=== PATIENT | male | born 1975 | race Caucasian/White ===

== ENCOUNTER 2017-07-11 00:59 | Outpatient (CLI) | payer BC | END 2017-07-11 01:00 | disposition home or self-care (01) | LOC: BICMRI 00:59 | PROVIDERS: ATTEND Family Medicine | DX: M51.17 Intervertebral disc disorders with radiculopathy, lumbosacral region (principal); M47.26 Other spondylosis with radiculopathy, lumbar region; M48.061 Spinal stenosis, lumbar region without neurogenic claudication | CPT/HCPCS: 72148 ==

== ENCOUNTER 2017-08-17 21:39 | Emergency (ER) | payer BC, SELFPAY ==
[2017-08-17] MEDS ORDERED: HYDROcodone/Acetaminophen 10/325 mg Tablet ONE (22:21)
[2017-08-17] MEDS ORDERED: Morphine 4 MG/ML Carpuject ONE ×2 (23:23→23:24)
== END 2017-08-17 23:40 | disposition home or self-care (01) ==
LOC: ERS 21:39
DX: M54.5 Low back pain (principal)
CPT/HCPCS: 96372; J2270

== ENCOUNTER 2017-09-14 14:49 | Outpatient (CLI) | payer BC ==
[2017-09-14 15:14] LABS: Hemoglobin 15.2 g/dL (14.0-18.0); Mean Corpuscular HGB CONC 33.1 g/dL (32.0-36.0); Mean Corpuscular Hemoglobin 28.3 pg (27.0-31.0); Mean Corpuscular Volume 85.3 fl (80.0-94.0); Mean Platelet Volume 8.1 fL (7.4-10.4); Platelet Count 214 thou/uL (130-400); RBC Distribution Width 11.9 % (11.5-14.5); Red Blood Cell (RBC) Count 5.39 mill/uL (4.70-6.10); White Blood Cell (WBC) Count 9.1 thou/uL (4.8-10.8)
[2017-09-14 15:35] LABS: Anion Gap 15 mmol/L (10-20); BUN (Urea Nitrogen) 18 mg/dL (8.9-20.6); Calc. Creatinine Clearance 0 mL/min (70-130); Calcium 9.8 mg/dL (7.8-10.44); Carbon Dioxide 26 mmol/L (22-29); Chloride 104 mmol/L (98-107); Estimated GFR-MDRD 67; Glucose 91 mg/dL (70-105); Potassium 3.8 mmol/L (3.5-5.1); Sodium 141 mmol/L (136-145)
--- NOTE | 2017-09-16 09:16 | EKG ---
Test Reason : Blood Pressure : / mmHG Vent. Rate : 075 BPM Atrial Rate : 075 BPM P-R Int : 146 ms QRS Dur : 090 ms QT Int : 388 ms P-R-T Axes : 056 040 031 degrees QTc Int : 433 ms Normal sinus rhythm with sinus arrhythmia Normal ECG No previous ECGs available Confirmed by DEBI BURGESS ([id number]) on 09/16/2017 9:15:47 AM Referred By: ANITA Confirmed By:DEBI BURGESS
== END 2017-09-14 14:50 | disposition home or self-care (01) ==
LOC: LABBT 14:49
PROVIDERS: ATTEND Neurological Surgery
DX: Z01.810 Encounter for preprocedural cardiovascular examination (principal); Z01.812 Encounter for preprocedural laboratory examination; M54.16 Radiculopathy, lumbar region
CPT/HCPCS: 80048; 85027; 93005; 93010

== ENCOUNTER 2017-09-17 06:58 | Observation (INO) | payer BC ==
[2017-09-14 15:07] VITALS: BMI 29.9
[2017-09-17] MEDS ORDERED: CEFAZOLIN/Water 2 GM/20 ML SYRINGE ONE (07:12)
[2017-09-17] MEDS ORDERED: Ondansetron HCl/PF 4 MG/2 ML Vial ONE ×3 (08:12→12:22)
[2017-09-17] MEDS ORDERED: Fentanyl 100 MCG/2 ML VIAL ONE ×5 (08:12→11:28)
[2017-09-17] MEDS ORDERED: Midazolam HCl 2 mg/2 ml Vial ONE (08:19)
[2017-09-17] MEDS ORDERED: Sodium Chloride 0.9% 10 ML ONE (08:47)
[2017-09-17] MEDS ORDERED: Famotidine/PF 20 mg/2ml Vial ONE (08:52)
[2017-09-17] MEDS ORDERED: HYDROmorphone 0.5 MG/0.5 ML SYRINGE ONE (09:05)
[2017-09-17] MEDS ORDERED: Promethazine HCl 25 MG/ML VIAL SLOW IVP PRN (10:17)
[2017-09-17] MEDS ORDERED: HYDROmorphone 2 MG/ML VIAL SLOW IVP PRN (10:17)
[2017-09-17] MEDS ORDERED: Ondansetron HCl/PF 4 MG/2 ML Vial IVP PRN (10:17)
[2017-09-17] MEDS ORDERED: Meperidine HCl/PF 25 MG/ML VIAL SLOW IVP PRN (10:17)
--- NOTE | 2017-09-17 10:25 | OP ---
DATE OF PROCEDURE: 09/17/2017 SURGEON: Lobito Rizzo M.D. INSTRUCTOR PHYSICAL: Mendoza Barrera PA-C PROCEDURES: Right L4-5 and right L5-S1 laminectomy, facetectomy, foraminotomy, interbody arthrodesis , intravertebral biomechanical device, local morselized autograft, demineralized bone matrix, postero lateral arthrodesis and pedicle screw instrumentation L4-5 and L5-S1. PROCEDURE IN DETAIL: The patient was brought into the operating room, intubated. He was rolled in t he prone position on gel-filled chest rolls. Incision made exposing L4 through S1 and our level was confirmed by x-ray. We performed right L4-L5 laminectomy, facetectomy, and foraminotomy as well as r ight L5-S1 laminectomy, facetectomy, and foraminotomy and completely removed the intravertebral discs . Particularly at L4-5, we tried to stay in the midline and completely decompressed the neural eleme nts at both affected levels. Next, the bony endplates were decorticated for the purpose of arthrodes is and appropriately sized intravertebral biomechanical PEEK device was brought into the field, fille d with demineralized bone matrix and local morselized autograft, and tapped into place securely at L4 -5 and L5-S1. Next, pedicle screws were placed at right L4, right L5 and right S1 using lateral fluo roscopic guidance and the positioning was confirmed with x-ray. A jay was secured between the screws , connected by nuts which were final tightened. The wound was then extensively irrigated, immaculate hemostasis was secured. A combination of demineralized bone matrix and local morselized autograft w as laid over the laminar and posterolateral surfaces for the purpose of arthrodesis. Vancomycin powd er was applied and the wound was closed in anatomic layers.
[2017-09-17] MEDS ORDERED: Lidocaine 1% PF 5 ML VIAL ONE (12:22)
[2017-09-17] MEDS ORDERED: Glycopyrrolate 0.2 MG/ML 5 ML SYRINGE ONE (12:22)
[2017-09-17] MEDS ORDERED: ePHEDrine/0.9% NaCl/PF SYRINGE 50 mg/10 ml ONE (12:22)
[2017-09-17] MEDS ORDERED: Ketorolac Tromethamine 30 MG/ML VIAL ONE (12:22)
[2017-09-17] MEDS ORDERED: Propofol 200 MG/20 ML VIAL ONE (12:22)
[2017-09-17] MEDS ORDERED: Dexamethasone 20 MG/5 ML VIAL ONE (12:22)
[2017-09-17] MEDS ORDERED: Promethazine HCl 25 MG/ML VIAL ONE (12:35)
[2017-09-17] MEDS ORDERED: Ondansetron HCl/PF 4 MG/2 ML Vial IM PRN (13:36)
[2017-09-17] MEDS ORDERED: Acetaminophen 325 MG TAB PO PRN (13:36)
[2017-09-17] MEDS ORDERED: Promethazine 25 MG TAB PO PRN (13:36)
[2017-09-17] MEDS ORDERED: Acetaminophen 650 MG Suppository PR PRN (13:36)
[2017-09-17] MEDS ORDERED: Promethazine HCl 12.5 MG SUPP PR PRN (13:36)
[2017-09-17] MEDS ORDERED: diphenhydrAMINE 50 MG/ML VIAL IVP PRN (13:36)
[2017-09-17] MEDS ORDERED: Mag-Al 1200 mg/1200 mg/30 ML UDCUP PO PRN (13:36)
[2017-09-17] MEDS ORDERED: Milk Of Magnesia 30 ML UDCUP PO PRN (13:36)
[2017-09-17] MEDS ORDERED: diphenhydrAMINE 25 MG CAP PO PRN (13:36)
[2017-09-17] MEDS ORDERED: Promethazine HCl 25 MG/ML VIAL IM PRN (13:36)
[2017-09-17] MEDS ORDERED: HYDROcodone/Acetaminophen 10/325 mg Tablet PO PRN (13:36)
[2017-09-17] MEDS ORDERED: tiZANidine HCl 4 MG TAB PO PRN (13:36)
[2017-09-17] MEDS ORDERED: Morphine 5 MG/ML SYRINGE SLOW IVP PRN ×2 (13:43)
[2017-09-17] MEDS: Sodium Chloride 0.9% 1,000 ML IV SCH (15:22)
[2017-09-17] MEDS ORDERED: Tamsulosin HCl 0.4 MG CAP PO SCH (18:15)
[2017-09-17] MEDS: HYDROcodone/Acetaminophen 10/325 mg Tablet PO PRN ×2 (19:08→23:25)
[2017-09-18] MEDS: Sodium Chloride 0.9% 1,000 ML IV SCH (07:37)
[2017-09-18] MEDS: HYDROcodone/Acetaminophen 10/325 mg Tablet PO PRN (08:13)
[2017-09-18 09:18] VITALS: BP 99/56; TEMP 98.1
== END 2017-09-18 10:53 | disposition home or self-care (01) ==
LOC: SDC 06:58 → SURG A 08:30
PROVIDERS: ADMIT Neurological Surgery; ATTEND Neurological Surgery
PROC: 0SG30AJ Fusion of Lumbosacral Joint with Interbody Fusion Device, Posterior Approach, Anterior Column, Open Approach (ICD-10-PCS; principal; 2017-09-18)
DX: M51.37 Other intervertebral disc degeneration, lumbosacral region (principal); M50.30 Other cervical disc degeneration, unspecified cervical region; Z98.890 Other specified postprocedural states; Z88.6 Allergy status to analgesic agent; Z79.899 Other long term (current) drug therapy
CPT/HCPCS: 51798; 76001; 96374; A4216; C1713; C1768; G0378; J0131; J1100; J1170; J1885; J2001; J2250; J2405; J2550; J2704; J3010; J3370; J3490; S0028

== ENCOUNTER 2017-10-03 10:22 | Outpatient (CLI) | payer BC ==
--- NOTE | 2017-10-03 12:11 | RAD ---
LUMBAR SPINE SERIES TWO VIEWS: History: Post op. FINDINGS: There has been placement of right unilateral pedicle screws at L4, L5, and S1. Markers of disc implan ts are within the confines of the disc levels. Markers at the L4-5 level are along the posterior edge of the discs. There is disc narrowing at L5-S1. Pedicles are intact. IMPRESSION: Post-operative changes of the spine. POS: OFF
== END 2017-10-03 10:23 | disposition home or self-care (01) ==
LOC: TBSIIMAG 10:22
PROVIDERS: ATTEND Physician Assistant
DX: M51.36 Other intervertebral disc degeneration, lumbar region (principal)
CPT/HCPCS: 72100

== ENCOUNTER 2017-10-05 14:34 | Inpatient (IN) | payer BC ==
[2017-10-05 15:41] LABS: #Eosinphils 0.1 thou/uL (0.0-0.7); #Lymphocytes 1.4 thou/uL (1.20-3.40); #Monocytes 0.7 thou/uL (0.11-0.59); #Neutrophils 4.5 thou/uL (1.40-6.50); %Basophils 0.6 % (0.0-1.0); %Eosinophils 1.7 % (0.0-10.0); %Lymphocytes 20.5 % (21.0-51.0); %Neutrophils 66.2 % (42.0-75.0); Hemoglobin 14.7 g/dL (14.0-18.0); Mean Corpuscular HGB CONC 34.5 g/dL (32.0-36.0); Mean Corpuscular Hemoglobin 28.8 pg (27.0-31.0); Mean Corpuscular Volume 83.5 fl (80.0-94.0); Mean Platelet Volume 7.2 fL (7.4-10.4); Platelet Count 224 thou/uL (130-400); RBC Distribution Width 11.6 % (11.5-14.5); White Blood Cell (WBC) Count 6.8 thou/uL (4.8-10.8)
[2017-10-05 15:48] LABS: Prothrombin Time 13.7 SEC (12.0-14.7)
[2017-10-05 15:49] LABS: PTT 29.6 SEC (22.9-36.1)
[2017-10-05 15:59] LABS: Anion Gap 10 mmol/L (10-20); BUN (Urea Nitrogen) 18 mg/dL (8.9-20.6); Calc. Creatinine Clearance 0 mL/min (70-130); Calcium 9.8 mg/dL (7.8-10.44); Carbon Dioxide 29 mmol/L (22-29); Chloride 104 mmol/L (98-107); Estimated GFR-MDRD 77; Glucose 87 mg/dL (70-105); Potassium 4.1 mmol/L (3.5-5.1); Sodium 139 mmol/L (136-145)
[2017-10-05] MEDS ORDERED: Dexamethasone 4 mg/ml Vial ONE (16:06)
[2017-10-05] MEDS ORDERED: Fentanyl 100 MCG/2 ML VIAL ONE (16:06)
[2017-10-05] MEDS ORDERED: Ondansetron HCl/PF 4 MG/2 ML Vial ONE (16:06)
--- NOTE | 2017-10-05 16:21 | CT ---
CT OF THE LUMBAR SPINE 10/05/17 COMPARISON: None. HISTORY: Postoperative patient with pain. TECHNIQUE: Serial axial CT imaging is obtained at 2.5 mm intervals through the lumbar spine without contrast. Co nolan and sagittal reformatted imaging obtained. FINDINGS: Evaluation for central canal and/or neural foraminal stenosis is limited on routine CT. There is a right sided pedicle screw present at L4, L5, and S1 with a vertically oriented interlockin g jay. The imaged nonosseous structures appear grossly unremarkable. There are changes of facetectomy on the right at L4-5 and L5-S1 with partial resection of inferior ar ticular facet of L4, superior and inferior articular facet of L5, and superior articular facet of S1. There is bone graft material as evidence by punctate foci of osseous density posterior to the left f acet joints at L4-5 and L5-S1. There is bilateral S1 laminectomy and right sided laminectomy at L5. There is no acute fracture or evidence of dislocation. There is an intervertebral disc device present at L4-5 and L5-S1. Of note, at the L4-5 level, radiopa que markers associated with a posterior aspect of the intervertebral disc device extends slightly pos terior to the vertebral body, extending into the right paracentral region which could signify posteri priyanka malpositioned/displaced disc device. This probably results in the degree of right lateral recess stenosis at L4-5. No osseous cause of significant central canal and neural foraminal stenosis. Postoperative stranding of the posterior paraspinal soft tissues are noted at L3-4, L4-5 and L5-S1. E valuation for underlying central canal and/or neural foraminal stenosis within the lumbar spine canno t be reliably evaluated on this exam. T12-L1: No osseous cause of significant central canal and neural foraminal stenosis. L1-2: No osseous cause of significant central canal or neural foraminal stenosis. L2-3: No osseous cause of significant central canal or neural foraminal stenosis. L3-4: No osseous cause of significant central canal or neural foraminal stenosis. L4-5: Limited assessment secondary to postoperative changes. Disc device at L4-5 appears to extend ab normally posteriorly projecting into the region of the right lateral recess with probable associated significant right lateral recess stenosis. There may be a degree of disc bulge and central canal sten osis, but this is not well assessed on this exam. L5-S1: There is a small osseous density in the region of the right neural foramen on the basis of katy or facetectomy. A degree of right neural foraminal stenosis is a possibility. There is osteophyte enc roachment on the left neural foramen with mild left neural foraminal stenosis. IMPRESSION: Multilevel postoperative change within the lumbar spine. No acute fracture or dislocation. Postoperat bettie findings are not well assessed on routine CT. Of note, the intervertebral disc device at L4-5 dvae ears posteriorly displaced. One of the radiopaque markers associated with the disc device at L4-5 ext ending into the right paracentral region. This likely results in a degree of right lateral recess winston nosis. Results discussed with Dr. Linda at 4 p.m., 10/05/17. Code CR POS: PRIYA
[2017-10-05] MEDS ORDERED: Milk Of Magnesia 30 ML UDCUP PO PRN (16:53)
[2017-10-05] MEDS ORDERED: Promethazine HCl 25 MG/ML VIAL IVPB PRN (16:53)
[2017-10-05] MEDS ORDERED: traMADol HCl 50 MG TAB PO PRN (16:53)
[2017-10-05] MEDS ORDERED: tiZANidine HCl 4 MG TAB PO PRN (16:53)
[2017-10-05] MEDS ORDERED: HYDROcodone/Acetaminophen 7.5/325 mg Tablet PO PRN (16:53)
[2017-10-05] MEDS ORDERED: Mag-Al 1200 mg/1200 mg/30 ML UDCUP PO PRN (16:53)
[2017-10-05] MEDS ORDERED: Ondansetron HCl/PF 4 MG/2 ML Vial IVP PRN (16:53)
[2017-10-05] MEDS ORDERED: Acetaminophen 325 MG TAB PO PRN (16:53)
[2017-10-05] MEDS ORDERED: Acetaminophen/Codeine 30-300mg Tablet PO PRN (16:58)
[2017-10-05] MEDS ORDERED: HYDROcodone/Acetaminophen 10/325 mg Tablet PO PRN (16:58)
[2017-10-05 17:59] VITALS: BMI 28.7
[2017-10-05] MEDS: Sodium Chloride 0.9% 1,000 ML IV SCH (18:19)
[2017-10-05] MEDS: Dexamethasone 4 mg/ml Vial SLOW IVP SCH ×2 (18:20→23:23)
[2017-10-05] MEDS: Cephalexin 250 MG CAP PO SCH (19:57)
[2017-10-05] MEDS ORDERED: Non-Formulary Item 1 EACH (Tizanidine Hcl [Zanaflex] 4 MG) PO SCH (22:00)
--- NOTE | 2017-10-05 22:38 | HP ---
ATTENDING PHYSICIAN: Lobito Rizzo MD HISTORY OF PRESENT ILLNESS: The patient is a 42-year-old male with a past medical history of lumbar degenerative disk disease, status post L4-L5 and L5-S1 diskectomy and fusion on 09/17/2017 who presented to the ER today for a new-onset severe low back and right lumbar radiculopathy, which is an onset suddenly this morning after bending forward for brushing his teeth. He reports that previously he had been doing well since his surgery. He was seen in postop followup on 10/03/2017 and at that time, plain film of the lumbar spine did show slight posterior migration of the L4-L5 interbody device, but the patient was not complaining of any significant pain at that time. We had planned to follow with repeat set of x-rays in approximately [address] noncontrast of the lumbar spine shows similar findings of the posterior migrating L4-L5 interbody device. Remainder of the hardware looks intact. I am seeing the patient at the bedside. He appears more comfortable after recently receiving IV pain medicine, fentanyl as well as Decadron IV. No focal weakness. He does have severe pain with right straight leg raise. No reflex asymmetry. He denies any bowel or bladder dysfunction. PAST MEDICAL HISTORY: The patient is otherwise healthy and denies any other medical problems. PAST SURGICAL HISTORY: 09/17/2017, L4-L5 and L5-S1 diskectomy and fusion, vasectomy , hernia repair. SOCIAL HISTORY: The patient is . He lives at home. He does not smoke, drink, or use any drugs. FAMILY HISTORY: Noncontributory. ALLERGIES: The patient is allergic to TRAMADOL. PHYSICAL EXAMINATION: VITAL SIGNS: Blood pressure is 114/56, pulse 56, respiratory rate is 18. The patient is 97% on room air, temperature is 98.4. CONSTITUTIONAL: The patient is lying in the bed, appears uncomfortable. HEENT: Normocephalic, atraumatic. EYES: PERRLA. Extraocular movements are intact. ENT: Oral mucosa is pink, intact, and moist. He has a normal voice. NECK: Nontender to palpation. Free active range of motion. No nuchal rigidity or meningismus. RESPIRATORY: The patient is breathing comfortably. No evidence of respiratory distress. CARDIOVASCULAR: Regular rate and rhythm. MUSCULOSKELETAL: He has good muscle tone to bilateral upper and lower extremities. No focal weakness. Positive R SLR. No reflex asymmetry. NEUROLOGIC: No focal weakness ASSESSMENT AND PLAN: The patient appears to have acute onset severe low back pain and right L5 radiculopathy. Imaging revealed posterior migration of the L4 -L5 interbody device. The patient's pain is improved in the emergency department after fentanyl and IV Decadron. We will plan to admit for pain control and continued monitoring. We will make the patient n.p.o. after midnight for possible need for surgical intervention. Dr. Rizzo is aware and in agreement with this plan. Please reach out to Neurosurgery Service for additional questions or concerns. BRUCE
[2017-10-06 05:47] LABS: #Lymphocytes 0.7 thou/uL (1.20-3.40); #Monocytes 0.2 thou/uL (0.11-0.59); #Neutrophils 7.8 thou/uL (1.40-6.50); %Eosinophils 0.1 % (0.0-10.0); %Lymphocytes 8.2 % (21.0-51.0); %Monocytes 1.7 % (0.0-10.0); Mean Corpuscular HGB CONC 34.7 g/dL (32.0-36.0); Mean Corpuscular Hemoglobin 29.4 pg (27.0-31.0); Mean Corpuscular Volume 84.8 fl (80.0-94.0); Mean Platelet Volume 8.4 fL (7.4-10.4); Platelet Count 230 thou/uL (130-400); RBC Distribution Width 11.5 % (11.5-14.5); Red Blood Cell (RBC) Count 4.75 mill/uL (4.70-6.10); White Blood Cell (WBC) Count 8.6 thou/uL (4.8-10.8)
[2017-10-06 06:19] LABS: Anion Gap 13 mmol/L (10-20); BUN (Urea Nitrogen) 18 mg/dL (8.9-20.6); Calc. Creatinine Clearance 138 mL/min (70-130); Calcium 9.9 mg/dL (7.8-10.44); Carbon Dioxide 24 mmol/L (22-29); Chloride 104 mmol/L (98-107); Estimated GFR-MDRD 80; Glucose 170 mg/dL (70-105); Potassium 4.3 mmol/L (3.5-5.1); Sodium 137 mmol/L (136-145)
[2017-10-06] MEDS: Dexamethasone 4 mg/ml Vial SLOW IVP SCH (06:58)
[2017-10-06] MEDS ORDERED: HYDROcodone/Acetaminophen 7.5/325 mg Tablet PO PRN ×2 (07:16)
[2017-10-06 08:18] VITALS: BP 116/68; TEMP 98
[2017-10-06] MEDS: Cephalexin 250 MG CAP PO SCH (08:52)
[2017-10-06] MEDS ORDERED: Famotidine/PF 20 mg/2ml Vial SLOW IVP SCH (09:00)
[2017-10-06] MEDS: Sodium Chloride 0.9% 1,000 ML IV SCH (11:05)
--- NOTE | 2017-10-06 11:46 | DIS ---
ATTENDING PHYSICIAN: Dr. Lobito Rizzo. DATE OF ADMISSION: 10/05/2017 DATE OF DISCHARGE: 10/06/2017 DISCHARGE SUMMARY: Patient is a 42-year-old male status post L4-L5, L5-S1 diskectomy and f usion on 09/17/2017, who presented to the ER yesterday for acute onset low back and right L5 radiculo car. His imaging revealed posterior migration of the L4-L5 interbody device. He was admitted for further evaluation. During his course, he was treated with IV Decadron as well as IV pain medication s with significant improvement in his symptoms. He is not able to ambulate throughout the hallways w ithout significant difficulty. He was seen by Dr. Rizzo, who recommends removal of the interbody device and we will plan to do this on the Sunday morning and will discharge to home until that time. I have discussed the precautions and reasons to return sooner. Please reach out to Neurosurgery Ser vice for additional questions or concerns.
== END 2017-10-06 10:56 | disposition home or self-care (01) | DRG 561 ==
LOC: ERS 14:34 → SURG A 16:53
PROVIDERS: ADMIT Neurological Surgery; ATTEND Neurological Surgery
DX: T84.428A Displacement of other internal orthopedic devices, implants and grafts, initial encounter (principal); Y83.1 Surgical operation with implant of artificial internal device as the cause of abnormal reaction of the patient, or of later complication, without mention of misadventure at the time of the procedure
CPT/HCPCS: 36415; 72131; 80048; 85025; 85610; 85730; 96374; 96375; J1100; J2270; J2405; J3010; S0028

== ENCOUNTER 2017-10-07 17:54 | Inpatient (IN) | payer BC ==
[2017-10-07] MEDS ORDERED: Fentanyl 100 MCG/2 ML VIAL ONE ×2 (18:49→20:21)
[2017-10-07 19:08] LABS: #Neutrophils 7.6 thou/uL (1.40-6.50); %Basophils 0.3 % (0.0-1.0); %Eosinophils 0.4 % (0.0-10.0); %Lymphocytes 18.7 % (21.0-51.0); %Monocytes 9.2 % (0.0-10.0); %Neutrophils 71.4 % (42.0-75.0); Hemoglobin 14.4 g/dL (14.0-18.0); Mean Corpuscular HGB CONC 33.4 g/dL (32.0-36.0); Mean Corpuscular Hemoglobin 28.6 pg (27.0-31.0); Mean Corpuscular Volume 85.7 fl (80.0-94.0); Mean Platelet Volume 7.8 fL (7.4-10.4); Platelet Count 230 thou/uL (130-400); RBC Distribution Width 11.8 % (11.5-14.5); Red Blood Cell (RBC) Count 5.01 mill/uL (4.70-6.10); White Blood Cell (WBC) Count 10.6 thou/uL (4.8-10.8)
[2017-10-07 19:18] LABS: Anion Gap 11 mmol/L (10-20); BUN (Urea Nitrogen) 21 mg/dL (8.9-20.6); Calc. Creatinine Clearance 0 mL/min (70-130); Calcium 9.5 mg/dL (7.8-10.44); Carbon Dioxide 27 mmol/L (22-29); Chloride 104 mmol/L (98-107); Estimated GFR-MDRD 79; Glucose 97 mg/dL (70-105); Potassium 4.2 mmol/L (3.5-5.1); Sodium 138 mmol/L (136-145)
[2017-10-07] MEDS ORDERED: Promethazine HCl 25 MG/ML VIAL IVPB PRN (19:18)
[2017-10-07] MEDS ORDERED: Ondansetron HCl/PF 4 MG/2 ML Vial IVP PRN (19:18)
[2017-10-07] MEDS ORDERED: Mag-Al 1200 mg/1200 mg/30 ML UDCUP PO PRN (19:18)
[2017-10-07] MEDS ORDERED: Milk Of Magnesia 30 ML UDCUP PO PRN (19:18)
[2017-10-07] MEDS ORDERED: diphenhydrAMINE 50 MG/ML VIAL IVP PRN (19:18)
[2017-10-07] MEDS ORDERED: Acetaminophen 325 MG TAB PO PRN (19:18)
[2017-10-07 21:04] VITALS: BMI 28.0
[2017-10-07] MEDS: Sodium Chloride 0.9% 1,000 ML IV SCH (21:11)
[2017-10-07] MEDS: Gabapentin 300 MG CAP PO SCH (21:11)
[2017-10-07] MEDS: Morphine 2 MG/ML SYRINGE SLOW IVP PRN (21:20)
[2017-10-07] MEDS: HYDROcodone/Acetaminophen 10/325 mg Tablet PO PRN (22:16)
[2017-10-07] MEDS: tiZANidine HCl 4 MG TAB PO PRN (22:17)
--- NOTE | 2017-10-08 01:07 | HP ---
ATTENDING PHYSICIAN: Lobito Rizzo MD HISTORY OF PRESENT ILLNESS: The patient is a 42-year-old male with past medical history of lumbar degenerative disk disease, status post L4-L5, L5-S1 diskectomy and fusion on 09/17/2017 who w as seen and admitted for acute onset post-surgical back pain recently and found to have posterior soco ration of the L4-L5 interbody device. He improved during his recent stay and was discharged home wit h plans for interbody device removal on 10/08/2017. He returns tonight for intractable pain. PAST MEDICAL HISTORY: The patient is otherwise healthy, denies any other medical problems. PAST SURGICAL HISTORY: On 09/17/2017, L4-L5, L5-S1 diskectomy and fusion, vasectomy, hernia repair. SOCIAL HISTORY: The patient is . He lives at home, does not smoke, drink, or use any drugs. FAMILY HISTORY: Noncontributory. ALLERGIES: The patient is allergic to TRAMADOL. PHYSICAL EXAMINATION: VITAL SIGNS: Blood pressure 111/69, respiration rate 16, oxygen saturation 96% on room air, pulse is 50, temperature 98.6. CONSTITUTIONAL: No acute distress. HEAD: Normocephalic, atraumatic. EYES: PERRLA. Extraocular movements intact. ENT: Oral mucosa is pink, intact, moist. He has normal voice. NECK: Nontender to palpation. Free active range of motion. No meningismus or nuchal rigidity. RESPIRATORY: Breathing comfortably. Symmetric chest expansion. CARDIOVASCULAR: Regular rate and rhythm. BACK: Low back incision is intact, dry. No erythema or swelling or other signs of infection. MUSCULOSKELETAL: Positive right straight leg raise, 5/5 strength throughout. No reflex asymmetry. NEUROLOGIC: Alert and oriented x4. No focal neurologic deficits. ASSESSMENT AND PLAN: The patient has progressively worsening low back and right L5 radiculopathy, st atus post L4-L5, L5-S1 diskectomy and fusion with recent CT that shows posterior migration of the L4- L5 interbody device. We will plan to admit patient to the Med/Surg floor for pain control. The екатерина ent will be made n.p.o. at midnight, plan for fusion revision with interbody device removal first thi ng in the morning. Please reach out to Neurosurgery Service for additional questions or concerns.
[2017-10-08] MEDS: Morphine 2 MG/ML SYRINGE SLOW IVP PRN ×2 (01:33→05:00)
[2017-10-08] MEDS: HYDROcodone/Acetaminophen 10/325 mg Tablet PO PRN ×3 (02:30→21:00)
[2017-10-08 05:35] LABS: #Basophils 0.1 thou/uL (0.0-0.2); #Eosinphils 0.1 thou/uL (0.0-0.7); #Lymphocytes 3.8 thou/uL (1.20-3.40); #Neutrophils 6.2 thou/uL (1.40-6.50); %Basophils 0.5 % (0.0-1.0); %Eosinophils 1.1 % (0.0-10.0); %Monocytes 9.2 % (0.0-10.0); %Neutrophils 55.2 % (42.0-75.0); Hemoglobin 14.6 g/dL (14.0-18.0); Mean Corpuscular HGB CONC 32.6 g/dL (32.0-36.0); Mean Corpuscular Hemoglobin 27.7 pg (27.0-31.0); Mean Platelet Volume 7.9 fL (7.4-10.4); Platelet Count 265 thou/uL (130-400); Red Blood Cell (RBC) Count 5.25 mill/uL (4.70-6.10); White Blood Cell (WBC) Count 11.2 thou/uL (4.8-10.8)
[2017-10-08 05:59] LABS: Anion Gap 13 mmol/L (10-20); BUN (Urea Nitrogen) 23 mg/dL (8.9-20.6); Calc. Creatinine Clearance 119 mL/min (70-130); Calcium 9.7 mg/dL (7.8-10.44); Carbon Dioxide 29 mmol/L (22-29); Chloride 102 mmol/L (98-107); Estimated GFR-MDRD 67; Glucose 97 mg/dL (70-105); Potassium 3.6 mmol/L (3.5-5.1); Sodium 140 mmol/L (136-145)
[2017-10-08] MEDS ORDERED: Sodium Chloride 0.9% 10 ML ONE (06:35)
[2017-10-08] MEDS ORDERED: Fentanyl 250 MCG/5 ML VIAL ONE ×2 (06:36→08:30)
[2017-10-08] MEDS ORDERED: Ondansetron HCl/PF 4 MG/2 ML Vial ONE ×2 (06:36→17:12)
[2017-10-08] MEDS ORDERED: Famotidine/PF 20 mg/2ml Vial ONE (06:36)
[2017-10-08] MEDS ORDERED: CEFAZOLIN/Water 2 GM/20 ML SYRINGE ONE (06:37)
[2017-10-08] MEDS ORDERED: Midazolam HCl 2 mg/2 ml Vial ONE (06:44)
[2017-10-08] MEDS ORDERED: Promethazine HCl 25 MG/ML VIAL SLOW IVP PRN (07:46)
[2017-10-08] MEDS ORDERED: Meperidine HCl/PF 25 MG/ML VIAL SLOW IVP PRN (07:46)
[2017-10-08] MEDS ORDERED: Ondansetron HCl/PF 4 MG/2 ML Vial IVP PRN (07:46)
[2017-10-08] MEDS ORDERED: HYDROmorphone 2 MG/ML VIAL SLOW IVP PRN (07:46)
[2017-10-08] MEDS ORDERED: Promethazine HCl 25 MG/ML VIAL IM PRN (07:46)
--- NOTE | 2017-10-08 07:58 | OP ---
DATE OF PROCEDURE: 10/08/2017 SURGEON: Lobito Rizzo M.D. LABOR UTILIZATION SUPERINTENDENT: Charles Bartholomew M.D. PROCEDURE: Removal of right L4-5 intervertebral device. PROCEDURE IN DETAIL: The patient was brought to the operating room and intubated. He was rolled in prone position on gel-filled chest rolls. The superior aspect of the previous incision was reopened and the right L4-5 region was identified. We immediately identified the loose and slightly projected right L4-5 interbody device and easily removed this. The wound was then extensively irrigated, momo culate hemostasis was secured. Vancomycin powder was applied and the wound was closed in anatomic la yers.
[2017-10-08] MEDS ORDERED: Promethazine HCl 25 MG/ML VIAL ONE (09:02)
[2017-10-08] MEDS: Sodium Chloride 0.9% 1,000 ML IV SCH (10:18)
[2017-10-08] MEDS: Gabapentin 300 MG CAP PO SCH ×3 (10:18→21:00)
[2017-10-08] MEDS: tiZANidine HCl 4 MG TAB PO PRN (16:56)
[2017-10-08] MEDS ORDERED: Dexamethasone 20 MG/5 ML VIAL ONE (17:12)
[2017-10-08] MEDS ORDERED: Glycopyrrolate 0.2 MG/ML 5 ML SYRINGE ONE (17:12)
[2017-10-08] MEDS ORDERED: PROPOFOL 200 MG/20 ML VIAL ONE (17:12)
[2017-10-08] MEDS ORDERED: Lidocaine 1% PF 5 ML VIAL ONE (17:12)
[2017-10-08] MEDS ORDERED: Ketorolac Tromethamine 30 MG/ML VIAL ONE (17:12)
[2017-10-09] MEDS: tiZANidine HCl 4 MG TAB PO PRN (00:37)
[2017-10-09] MEDS: Sodium Chloride 0.9% 1,000 ML IV SCH (01:59)
[2017-10-09] MEDS: HYDROcodone/Acetaminophen 10/325 mg Tablet PO PRN (04:29)
[2017-10-09] MEDS: Gabapentin 300 MG CAP PO SCH (08:05)
[2017-10-09 08:28] VITALS: BP 110/68; TEMP 97.9
== END 2017-10-09 08:52 | disposition home or self-care (01) | DRG 517 ==
LOC: ERS 17:54 → SURG B 19:00
PROVIDERS: ADMIT Neurological Surgery; ATTEND Neurological Surgery
PROC: 0SP00AZ Removal of Interbody Fusion Device from Lumbar Vertebral Joint, Open Approach (ICD-10-PCS; principal; 2017-10-08)
DX: T84.038A Mechanical loosening of other internal prosthetic joint, initial encounter (principal); Y79.3 Surgical instruments, materials and orthopedic devices (including sutures) associated with adverse incidents
CPT/HCPCS: 36415; 80048; 85025; 96374; 96376; A4216; J0131; J1100; J1885; J2001; J2250; J2270; J2405; J2550; J2704; J3010; J3370; J3490; S0028

== ENCOUNTER 2017-10-23 13:10 | Outpatient (CLI) | payer BC ==
--- NOTE | 2017-10-23 14:02 | RAD ---
TWO VIEWS LUMBAR SPINE: Date: 10-23-17 Comparison: 10-03-17 History: Re-evaluate lumbar spine following back surgery. FINDINGS: There are cutaneous irvin overlying the L4, L5, and S1 levels. There are right pedicle screws at L4 , L5, and S1 with vertically oriented interlocking jay, not significantly change. There is disc devic e at the L5-S1 level. The disc device at L4-5 seen on the prior examination has been removed. No acut e fracture. No anterolisthesis or retrolisthesis. Mild anterior osteophyte formation at L1-2 and L3-4 . No acute osseous abnormality. IMPRESSION: Post-operative and degenerative change within the lumbar spine as described above. POS: PRIYA
== END 2017-10-23 13:11 | disposition home or self-care (01) ==
LOC: TBSIIMAG 13:10
PROVIDERS: ATTEND Neurological Surgery
DX: M51.36 Other intervertebral disc degeneration, lumbar region (principal); M47.896 Other spondylosis, lumbar region; Z98.890 Other specified postprocedural states
CPT/HCPCS: 72100

== ENCOUNTER 2017-12-11 14:26 | Outpatient (CLI) | payer BC ==
--- NOTE | 2017-12-11 16:04 | RAD ---
TWO VIEWS OF THE LUMBOSACRAL SPINE: 12/11/17 COMPARISON: 10/23/17. HISTORY: Lumbosacral radiculopathy. FINDINGS: Two views of the lumbosacral spine shows the patient to be status post posterior fusion of L4 through S1 with right sided pedicle screws. There is a disc spacer within the L5-S1 disc space. There is a s mall amount of lucency surrounding the L4 pedicle screw. No lucency is seen surrounding the L5 or S1 pedicle screws. The vertebral bodies demonstrate normal alignment without subluxation. IMPRESSION: Possible developing lucency surrounding the L4 pedicle screw could suggest hardware loosening. POS: PRIYA
== END 2017-12-11 14:27 | disposition home or self-care (01) ==
LOC: TBSIIMAG 14:26
PROVIDERS: ATTEND Neurological Surgery
DX: M54.16 Radiculopathy, lumbar region (principal); Z98.1 Arthrodesis status
CPT/HCPCS: 72100

== ENCOUNTER 2018-03-13 16:10 | Outpatient (CLI) | payer OTHER ==
--- NOTE | 2018-03-13 18:06 | RAD ---
THREE VIEWS OF THE LUMBAR SPINE 03/13/18 COMPARISON: 12/11/17 HISTORY: Re-evaluate lumbar spine following surgery, lumbar radiculopathy. FINDINGS: Five lumbar type vertebral bodies are present. Stable right sided pedicle screws are present at L4, L 5 and S1 with vertically oriented interlocking rods. There is an intervertebral disc device present a t the L5-S1 level, which appears unchanged when compared to the prior exam. There is no anterolisthes is or retrolisthesis seen. There is perihardware lucency adjacent to the pedicle screw on the right at L4 concerning for looseni ng. Recommend further assessment via lumbar spine CT. No acute fracture is noted. IMPRESSION: Lucency adjacent to the L4 pedicle screw on the right is concerning for loosening. Recommend followup CT examination of the lumbar spine. No acute fracture. POS: PRIYA
== END 2018-03-13 16:11 | disposition home or self-care (01) ==
LOC: TBSIIMAG 16:10
PROVIDERS: ATTEND Neurological Surgery
DX: M54.16 Radiculopathy, lumbar region (principal); Z98.890 Other specified postprocedural states
CPT/HCPCS: 72100

== ENCOUNTER 2018-09-05 16:06 | Outpatient (CLI) | payer BC ==
--- NOTE | 2018-09-05 17:43 | RAD ---
LUMBAR SPINE TWO VIEWS: 09/05/18 HISTORY: Low back pain. COMPARISON: 03/13/18. FINDINGS: There are five lumbar type vertebrae. Right pedicle screws and vertical jay at the L4-5-S1 levels. Ot her pedicles are intact. Vertebral body heights and alignment are maintained. Metallic lucency around the L4 pedicle screw is unchanged in appearance. Metallic markers associated with interbody fusion m aterial at the L5-S1 level remain within the confines of the disc space. Osteophytosis throughout the vertebral bodies and facets. IMPRESSION: Lucency around the right L4 pedicle screw and other postoperative and degenerative findings are stab le. POS: LIANNA
== END 2018-09-05 16:07 | disposition home or self-care (01) ==
LOC: TBSIIMAG 16:06
PROVIDERS: ATTEND Neurological Surgery
DX: M51.36 Other intervertebral disc degeneration, lumbar region (principal); Z98.1 Arthrodesis status
CPT/HCPCS: 72100